=== PATIENT | female | born 1960 | race Two or more races ===

== ENCOUNTER 2023-08-09 05:30 | Day surgery (SDC) | payer OTHER ==
[~2023-08-09] VITALS: Ht 154.9 cm; Wt 83.5 kg
[~2023-08-09 05:30] MED LIST: CLONAZEPAM0.5 MG PO; COZAAR50 MG PO; ESCITALOPRAM OX20 MG PO; WELLBUTRIN XL150 M1 PO; ZOLPIDEM TARTRA10 MG PO
[2023-08-09] MEDS ORDERED: IBU600 MG PO (10:31)
== END 2023-08-09 14:00 | disposition home or self-care (01) ==
LOC: CIR.AMB 05:30
PROVIDERS: ATTEND Obstetrics & Gynecology Gynecology
DX: N85.02 Endometrial intraepithelial neoplasia [EIN] (principal); N95.0 Postmenopausal bleeding; Z88.0 Allergy status to penicillin; F41.9 Anxiety disorder, unspecified

== ENCOUNTER 2024-01-10 10:00 | Inpatient (IN) | payer OTHER ==
[~2024-01-10] VITALS: Ht 30.5 cm; Wt 83.0 kg
[~2024-01-10 10:00] MED LIST changes: +IBU600 MG PO
[2024-01-17] MEDS ORDERED: FUROSEMIDE20 MG (09:35)
[2024-01-17] MEDS ORDERED: CLINDAMYCIN PHOSPHATE 150 MG/ML (600mg) ONE (11:14)
[2024-01-17] MEDS ORDERED: LIDOCAINE HCL 1%/Epi 20ML VIAL IJ ONE ×2 (11:15→13:00)
[2024-01-17] MEDS ORDERED: POVIDONE-IODINE 118 ML BOTT TOP ONE ×2 (11:30→13:00)
[2024-01-17] MEDS ORDERED: CLINDAMYCIN PHOSPHATE 150 MG/ML (600mg) IV ONE (13:00)
[2024-01-17] MEDS ORDERED: HEMOSTATIC MATRIX 1 KIT KIT TOP ONE ×2 (13:27→13:30)
[2024-01-17] MEDS ORDERED: SURGIFLO APPLICATOR 1 EACH APPL TOP ONE ×2 (13:34→13:45)
[2024-01-17] MEDS ORDERED: RINGERS SOLUTION,LACTATED 1,000 ML IV SCH (14:00)
[2024-01-17] MEDS ORDERED: ONDANSETRON HCL 2 MG/ML VIAL IV PRN (14:00)
[2024-01-17] MEDS ORDERED: MORPHINE SULFATE 4 MG,MORPHINE SULFATE 2 MG IV PRN (14:15)
[2024-01-17] MEDS ORDERED: CLINDAMYCIN PHOSPHATE 150 MG/ML (600mg) IV SCH (18:00)
[2024-01-17 19:56] LABS: HEMATOCRIT 38.9 % (36.0-45.00); HEMOGLOBIN 12.7 g/dL (12.0-15.00); MEAN CELL VOLUME 81.7 fL (80.00-100.00); MEAN CORPUSCULAR HEMOGLOBIN 26.8 pg (27.00-32.0); MEAN CORPUSCULAR HGB CONC 32.8 g/dl (32.0-36.0); PLATELET COUNT 294 K/uL (150-450); RED BLOOD COUNT 4.76 M/uL (4.00-6.00); RED CELL DISTRIBUTION WIDTH 14.9 % (11.5-14.5)
[2024-01-18] MEDS ORDERED: IBU800 MG PO (06:53)
[2024-01-18] MEDS ORDERED: NEURONTIN300 MG PO (06:54)
[2024-01-18] MEDS ORDERED: LOSARTAN POTASSIUM 50 MG TABLET PO SCH (09:00)
[2024-01-18] MEDS ORDERED: ENOXAPARIN SODIUM 40 MG/0.4 ML SYRINGE SUBCUTANEO SCH (09:00)
== END 2024-01-18 09:49 | disposition home or self-care (01) | DRG 743 ==
LOC: OB/GYN 01-17 07:00 → O/R 01-17 09:23 → OB/GYN 01-17 09:23
PROVIDERS: ADMIT Obstetrics & Gynecology Gynecology; ATTEND Obstetrics & Gynecology Gynecology
PROC: 0UT74ZZ Resection of Bilateral Fallopian Tubes, Percutaneous Endoscopic Approach (ICD-10-PCS; 2024-01-17)
PROC: 0UT24ZZ Resection of Bilateral Ovaries, Percutaneous Endoscopic Approach (ICD-10-PCS; 2024-01-17)
PROC: 0UT94ZZ Resection of Uterus, Percutaneous Endoscopic Approach (ICD-10-PCS; principal; 2024-01-17 09:55)
DX: D25.1 Intramural leiomyoma of uterus (principal); N84.0 Polyp of corpus uteri; Z20.822 Contact with and (suspected) exposure to COVID-19